=== PATIENT | male | born 1995 | race Caucasian/White ===

== ENCOUNTER 2018-05-15 18:32 | Emergency (ER) | payer BC ==
[2018-05-15] MEDS ORDERED: Ibuprofen 800 MG Tab PO ONE (19:09)
--- NOTE | 2018-05-15 19:40 | EDM.PDOC ---
ED HPI GENERAL MEDICAL PROBLEM - General Chief Complaint: Respiratory Problem Stated Complaint: FEVER Time Seen by Provider: 05/15/18 18:55 Source of Information: Reports: Patient History Limitations: Reports: No Limitations - History of Present Illness INITIAL COMMENTS - FREE TEXT/NARRATIVE: 22 y/o male presents to ER with cc generalized body aches, chills fever that started last evening. He reports he took a Tamiflu earlier today. He has not taken anything for his fever. He reports that a co-worker has the flu. He does not have a PCP he just moved here from [place]. Onset Date: 05/14/18 Onset Time: 21:00 Duration: Getting Worse Location: Reports: Generalized (body aches) Quality: Reports: Ache Severity: Mild Improves with: Reports: None Worsens with: Reports: None Associated Symptoms: Reports: Fever/Chills, Nausea/Vomiting. Denies: Chest Pain , Cough, Weakness Bilateral Leg Pain Score (Numeric/FACES): 4 - Related Data Allergies Allergy/AdvReac Type Severity Reaction Status Date / Time No Known Allergies Allergy Verified 05/15/18 18:39 Home Meds: Home Meds Azithromycin [Zithromax] 250 mg PO DAILY #4 tab 05/15/18 [Rx] Social & Family History - Tobacco Use Smoking Status *Q: Current Every Day Smoker Years of Tobacco use: 3 Packs/Tins Daily: 0.2 - Caffeine Use Caffeine Use: Reports: Coffee - Recreational Drug Use Recreational Drug Use: No ED ROS GENERAL - Review of Systems Review Of Systems: See Below Constitutional: Reports: Fever, Chills HEENT: Reports: Throat Pain Respiratory: Reports: Cough Cardiovascular: Reports: No Symptoms Endocrine: Reports: No Symptoms GI/Abdominal: Reports: No Symptoms : Reports: No Symptoms Musculoskeletal: Reports: Muscle Pain Skin: Reports: No Symptoms Neurological: Reports: No Symptoms Psychiatric: Reports: No Symptoms Hematologic/Lymphatic: Reports: No Symptoms Immunologic: Reports: No Symptoms ED EXAM, GENERAL - Physical Exam Exam: See Below General Appearance: Alert, WD/WN, No Apparent Distress Ears: Normal External Exam, Normal Canal, Hearing Grossly Normal, Normal TMs Nose: Normal Inspection, Normal Mucosa, No Blood Throat/Mouth: Normal Inspection, Normal Lips, Normal Teeth, Normal Gums, Normal Oropharynx, Normal Voice, No Airway Compromise Head: Atraumatic, Normocephalic Neck: Normal Inspection, Supple, Non-Tender, Full Range of Motion Respiratory/Chest: No Respiratory Distress, Lungs Clear, Normal Breath Sounds, No Accessory Muscle Use, Chest Non-Tender Cardiovascular: Normal Peripheral Pulses, Regular Rate, Rhythm, No Edema, No Gallop, No JVD, No Murmur, No Rub Neurological: Alert, Oriented, CN II-XII Intact, Normal Cognition, Normal Gait, Normal Reflexes, No Motor/Sensory Deficits Psychiatric: Normal Affect, Normal Mood Skin Exam: Warm, Dry, Intact, Normal Color, No Rash Lymphatic: No Adenopathy Course - Vital Signs Text/Narrative:: 22 y/o male presents to ER with cc generalized body aches and fever. His influenza and strep were negative. I instructed him to increase his fluid intake, to take Ibuprofen or Tylenol for fever. Since he is new to the area, I will refer him to outpatient clinic. His preliminary chest x-ray reveals no acute findings. Because of his presentation and high fever, I am gone to discharge with Azithromycin for outpatient antibiotic therapy. I referred him to outpatient clinic and to follow up with Dr. Child or another provider. i instructed him to return to the ER for any new or acute worsening symptoms. Last Recorded V/S: Last Vital Signs Temp 103 F H 05/15/18 19:38 Pulse 121 H 05/15/18 18:37 Resp 18 05/15/18 18:37 BP 135/76 05/15/18 18:37 Pulse Ox 97 05/15/18 18:37 - Orders/Labs/Meds Orders: Active Orders 24 hr Category Date Time Status Chest 1V Frontal [CR] Stat Exams 05/15/18 20:22 Taken CULTURE STREP A CONFIRMATION [RM] Stat Lab 05/15/18 19:44 Results STREP SCRN A RAPID W CULT CONF [RM] Stat Lab 05/15/18 19:44 Results Azithromycin [Zithromax] Med 05/15/18 20:30 Active 500 mg PO DAILY Medication Orders Azithromycin (Zithromax) 500 mg PO DAILY ADAN Meds: Medications Generic Name Dose Route Start Last Admin Trade Name Freq PRN Reason Stop Dose Admin Azithromycin 500 mg 05/15/18 20:30 Zithromax PO DAILY ADAN Discontinued Medications Generic Name Dose Route Start Last Admin Trade Name Freq PRN Reason Stop Dose Admin Ibuprofen 800 mg 05/15/18 19:09 05/15/18 19:38 Motrin PO 05/15/18 19:10 800 mg ONETIME ONE Administration Departure - Departure Time of Disposition: 20:44 Disposition: Home, Self-Care 01 Clinical Impression: Fever URI (upper respiratory infection) Qualifiers: URI type: unspecified URI Qualified Code(s): J06.9 - Acute upper respiratory infection, unspecified - Discharge Information *PRESCRIPTION DRUG MONITORING PROGRAM REVIEWED*: Not Applicable *COPY OF PRESCRIPTION DRUG MONITORING REPORT IN PATIENT COLLEEN: Not Applicable Prescriptions: Azithromycin [Zithromax] 250 mg PO DAILY #4 tab Instructions: Viral Respiratory Infection, [id number], Viral Respiratory Infection Referrals: PCP,None [Primary Care Provider] - Ailyn Child MD [Physician] - Forms: ED Department Discharge Additional Instructions: you have been diagnosis with upper respiratory infection. Take Azithromycin one daily for the next 4 days. Take Tylenol or Ibuprofen for fever. Follow up with Dr. Child or another provider in the clinic. Return to the ER for any new or acute worsening symptoms. - My Orders Last 24 Hours: My Active Orders 05/15/18 19:44 CULTURE STREP A CONFIRMATION [RM] Stat STREP SCRN A RAPID W CULT CONF [RM] Stat 05/15/18 20:22 Chest 1V Frontal [CR] Stat 05/15/18 20:30 Azithromycin [Zithromax] 500 mg PO DAILY - Assessment/Plan Last 24 Hours: My Active Orders 05/15/18 19:44 CULTURE STREP A CONFIRMATION [RM] Stat STREP SCRN A RAPID W CULT CONF [RM] Stat 05/15/18 20:22 Chest 1V Frontal [CR] Stat 05/15/18 20:30 Azithromycin [Zithromax] 500 mg PO DAILY
[2018-05-15] MEDS ORDERED: Azithromycin 250 MG Tab PO SCH (20:30)
--- NOTE | 2018-05-16 08:42 | CR ---
Chest: Portable view of the chest was obtained. Comparison: No previous chest x-ray. Heart size and mediastinum are normal. Lungs are clear. Bony structures are grossly intact. Impression: 1. Nothing acute is seen on portable chest x-ray. Diagnostic code #1
== END 2018-05-15 20:57 | disposition home or self-care (01) ==
LOC: JD.ED 18:32
DX: J06.9 Acute upper respiratory infection, unspecified (principal); F17.210 Nicotine dependence, cigarettes, uncomplicated
CPT/HCPCS: 71045; 87081; 87430; 87804; 99283; A9270